=== PATIENT | female | born 2000 | race African-American/Black ===

== ENCOUNTER 2025-05-14 05:24 | Emergency (ER) | payer OTHER ==
[2025-05-14] MEDS ORDERED: ONDANSETRON 4 MG (ODT) TAB ONE (05:45)
[2025-05-14] MEDS ORDERED: ACETAMINOPHEN 500 MG TAB ONE (05:45)
[2025-05-14] MEDS ORDERED: IBUPROFEN 400 MG TAB ONE (05:45)
[2025-05-14] MEDS ORDERED: DIPHENOX/ATROP SULF 1 TAB PO ONE (06:05)
[2025-05-14 06:09] LABS: Influenza A Ag Negative; Influenza B Ag Negative; SARS-CoV-2 Antigen Rapid Res Negative (Negative)
--- NOTE | 2025-05-14 06:30 | EDPHYS ---
Physician Documentation [facility] Name: Natalia Slade Age: 25 yrs Sex: Female : 2000 Arrival Date: 05/14/2025 Time: 05:24 Bed 7 Private MD: ED Physician Leonid Schaefer HPI: 05/14 05:31 This 25 yrs old Black Female presents to ER via Unassigned with complaints of Flu sp4 Symptoms. 22:04 25-year-old female presents with 3 days of worsening sore throat fevers chills feeling sp4 unwell. 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 - Infectious Disease History:: Denies. - Social history:: Smoking status: Patient denies any tobacco usage or history of. - Family history:: not pertinent. ROS: 22:04 Constitutional: positive for fever chills and sore throat. sp4 22:04 All other systems are negative, Exam: 22:04 Constitutional: This is a well developed, well nourished patient who is awake, alert, sp4 and in no acute distress. Head/Face: Normocephalic, atraumatic. Eyes: Pupils equal round and reactive to light, extra-ocular motions intact. Lids and lashes normal. Conjunctiva and sclera are not injected. Cornea within normal limits. Periorbital areas with no swelling, redness, or edema. ENT: Nares patent. No nasal discharge, no septal abnormalities noted. Tympanic membranes are normal and external auditory canals are clear. Oropharynx with no redness, swelling, or masses, exudates, or evidence of obstruction, uvula midline. Mucous membranes moist. Neck: Trachea midline, no thyromegaly or masses palpated, and no cervical lymphadenopathy. Supple, full range of motion without nuchal rigidity, or vertebral point tenderness. Chest/axilla: Normal chest wall appearance and motion. Nontender with no deformity. No lesions are appreciated. Cardiovascular: Regular rate and rhythm with a normal S1 and S2. No gallops, murmurs, or rubs. No pulse deficits. Respiratory: Lungs have equal breath sounds bilaterally, clear to auscultation and percussion. No rales, rhonchi or wheezes noted. No increased work of breathing, no retractions or nasal flaring. Abdomen/GI: Soft, with normal bowel sounds. No distension or tympany. No guarding or rebound. No evidence of tenderness throughout. Back: No spinal tenderness. No costovertebral tenderness. Skin: Warm, dry with normal turgor. Normal color with no rashes, no lesions, and no evidence of cellulitis. MS/ Extremity: Pulses equal, no cyanosis. Neurovascular intact. Full, normal range of motion. Neuro: Awake and alert, GCS 15, oriented to person, place, time, and situation. Cranial nerves II-XII grossly intact. Motor strength 5/5 in all extremities. Sensory grossly intact. Psych: Awake, alert, with orientation to person, place and time. Behavior, mood, and affect are within normal limits Vital Signs: 05:27 BP 144 / 103; Pulse 95; Resp 18 S; Temp 98.7; Pulse Ox 100% on R/A; Weight 115.21 kg; ha1 Height 5 ft. 5 in. ; 06:37 BP 148 / 104; Pulse 91; Resp 18; Pulse Ox 100% ; cp4 05:27 Body Mass Index 42.27 (115.21 kg, 165.1 cm) ha1 [place] Coma Score: 22:04 Eye Response: spontaneous(4). Verbal Response: oriented(5). Motor Response: obeys sp4 commands(6). Total: 15. MDM: 06:30 Medical Screening Exam initiated sp4 22:05 Differential Diagnosis altered mental status, sepsis, flu. Data reviewed: vital signs, sp4 nurses notes, lab test result(s), Flu: negative. Consideration of Admission/Observation Escalation of care including admission/observation considered. ED course: Stable for discharge home with symptomatic medications.. 05/14 05:30 Order name: COVID-19 Ag + Flu A+B Ag; Complete Time: 06:23 cp4 05/14 05:30 Order name: Test, Urine; Complete Time: 06:23 cp4 05/14 05:35 Order name: Group A Streptococcus Rapid; Complete Time: 06:23 cp4 05/14 05:58 Order name: Throat Culture EDMS Administered Medications: 05:51 Drug: Acetaminophen PO 1000 mg PO once Route: PO; ja5 06:09 Follow up: Response: No adverse reaction cp4 05:51 Drug: Ibuprofen PO 800 mg PO once Route: PO; ja5 06:09 Follow up: Response: No adverse reaction cp4 05:51 Drug: Ondansetron PO 8 mg PO once Route: PO; ja5 06:08 Follow up: Response: No adverse reaction; Nausea is decreased cp4 06:09 Drug: Diphenoxylate-Atropine PO 2 tabs PO once Route: PO; cp4 06:39 Follow up: Response: No adverse reaction cp4 Disposition Summary: 05/14/25 06:30 Discharge Ordered Notes: Location: Home sp4 Problem: new sp4 Symptoms: have improved sp4 Condition: Stable sp4 Diagnosis - Acute systemic viral illness, elevated blood pressure reading sp4 Followup: sp4 - With: Private Physician - When: 7 - 10 days - Reason: Recheck today's complaints Discharge Instructions: - Discharge Summary Sheet sp4 - Viral Illness, Adult sp4 Forms: - Work release form sp4 - Patient Portal Instructions sp4 Prescriptions: - Ibuprofen 800 mg Oral tablet - take 1 tablet ORAL route every 8 hours As needed PRN fever; 30 tablet; Refills: sp4 0, Product Selection Permitted - Lomotil 2.5-0.025 mg Oral tablet - take 1 tablet ORAL route every 6 hours As needed PRN nausea; 30 tablet; sp4 Refills: 0, Product Selection Permitted - ondansetron 8 mg Oral Tablet,disintegrating - take 1 tablet ORAL route every 8 hours PRN nausea; 30 tablet; Refills: 0, sp4 Product Selection Permitted Signatures: Dispatcher [employer] EDYue Man RN RN ha1 Leonid Schaefer MD MD sp4 Harleen Bhaita 4 Hiral Villar 5 Corrections: (The following items were deleted from the chart) 05:31 05:31 COVID-19 Ag + Flu A+B Ag+I.LAB.BRZ ordered. EDMS EDMS 05:31 05:31 Test, Urine+UC.LAB.BRZ ordered. EDMS EDMS
--- NOTE | 2025-05-14 06:30 | ER ---
Nurse's Notes [facility] Name: Natalia Slade Age: 25 yrs Sex: Female : 2000 Arrival Date: 05/14/2025 Time: 05:24 Bed 7 Private MD: Diagnosis: Acute systemic viral illness, elevated blood pressure reading Presentation: 05/14 05:27 Chief complaint: Patient states: BILATERAL EAR ACHE, SORE THROAT, AND BODY ACHES. ha1 05:27 Coronavirus screen: Client denies travel out of the [place] in the last 14 days. Ebola ha1 Screen: No symptoms or risks identified at this time. Initial Sepsis Screen: Does the patient meet any 2 criteria? No. Patient's initial sepsis screen is negative. Does the patient have a suspected source of infection? No. Patient's initial sepsis screen is negative. Risk Assessment: Do you want to hurt yourself or someone else? Patient reports no desire to harm self or others. Onset of symptoms was May 14, 2025. 05:27 Method Of Arrival: Ambulatory ha1 05:27 Acuity: JESSICA 4 ha1 Triage Assessment: 05:39 General: Appears uncomfortable, Behavior is calm, cooperative. Pain: Complains of pain ha1 in BILATERAL EAR ACHE AND SORE THROAT. Neuro: Level of Consciousness is awake, alert, obeys commands, Oriented to person, place, time, situation. Cardiovascular: Capillary refill < 3 seconds Patient's skin is warm and dry. Respiratory: Airway is patent Respiratory effort is even, unlabored, Respiratory pattern is regular, symmetrical. GI: No signs and/or symptoms were reported involving the gastrointestinal system. Abdomen is round non-distended. Derm: Skin is normal. 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 - Infectious Disease History:: Denies. - Social history:: Smoking status: Patient denies any tobacco usage or history of. - Family history:: not pertinent. Screenin:47 [facility] ED Fall Risk Assessment (Adult) History of falling in the last 3 months, cp4 including since admission No falls in past 3 months (0 pts) Confusion or Disorientation No (0 pts) Intoxicated or Sedated No (0 pts) Impaired Gait No (0 pts) Mobility Assist Device Used No (0 pt) Altered Elimination No (0 pt) Score/Fall Risk Level 0 - 2 = Low Risk Oriented to surroundings, Maintained a safe environment, Assessed \T\ reinforced patient's understanding of fall precautions, Hourly rounding (assess needs \T\ fall precautionary measures) done. Abuse screen: Denies threats or abuse. Denies injuries from another. Nutritional screening: No deficits noted. Tuberculosis screening: No symptoms or risk factors identified. Never had TB. Assessment: 05:47 General: Appears in no apparent distress. comfortable, Behavior is calm, cooperative, cp4 appropriate for age. Pain: Complains of pain in right ear and left ear Pain does not radiate. Pain currently is 8 out of 10 on a pain scale. Neuro: Level of Consciousness is awake, alert, obeys commands, Oriented to person, place, time, situation. Cardiovascular: Patient's skin is warm and dry. Respiratory: Airway is patent Respiratory effort is even, unlabored. GI: No signs and/or symptoms were reported involving the gastrointestinal system. : No signs and/or symptoms were reported regarding the genitourinary system. EENT: Reports difficulty swallowing. Derm: No signs and/or symptoms reported regarding the dermatologic system. Musculoskeletal: No signs and/or symptoms reported regarding the musculoskeletal system. Vital Signs: 05:27 BP 144 / 103; Pulse 95; Resp 18 S; Temp 98.7; Pulse Ox 100% on R/A; Weight 115.21 kg; ha1 Height 5 ft. 5 in. ; 06:37 BP 148 / 104; Pulse 91; Resp 18; Pulse Ox 100% ; cp4 05:27 Body Mass Index 42.27 (115.21 kg, 165.1 cm) ha1 [place] Coma Score: 22:04 Eye Response: spontaneous(4). Verbal Response: oriented(5). Motor Response: obeys sp4 commands(6). Total: 15. ED Course: 05:26 Patient arrived in ED. im 05:30 Leonid Schaefer MD is Attending Physician. sp4 05:39 Triage completed. ha1 05:47 Bed in low position. Call light in reach. Side rails up X 1. cp4 05:47 No provider procedures requiring assistance completed. Patient did not have IV access cp4 during this emergency room visit. 05:52 Test, Urine Sent. ja5 06:38 Provided Education on: viral illlness. cp4 06:39 Arm band placed on right wrist. Patient placed in waiting room. cp4 Administered Medications: 05:51 Drug: Acetaminophen PO 1000 mg PO once Route: PO; ja5 06:09 Follow up: Response: No adverse reaction cp4 05:51 Drug: Ibuprofen PO 800 mg PO once Route: PO; ja5 06:09 Follow up: Response: No adverse reaction cp4 05:51 Drug: Ondansetron PO 8 mg PO once Route: PO; ja5 06:08 Follow up: Response: No adverse reaction; Nausea is decreased cp4 06:09 Drug: Diphenoxylate-Atropine PO 2 tabs PO once Route: PO; cp4 06:39 Follow up: Response: No adverse reaction cp4 Medication: 05:47 VIS not applicable for this client. cp4 Outcome: 06:30 Discharge ordered by . sp4 06:38 Discharged to home ambulatory, cp4 06:38 Condition: stable 06:38 Discharge instructions given to patient, Instructed on discharge instructions, follow up and referral plans. medication usage, Demonstrated understanding of instructions, follow-up care, medications, Prescriptions given X 3, 06:39 Patient left the ED. cp4 Signatures: Yue Conner RN RN Leonid Osullivan MD MD sp4 Lakisha Jasmine Christina cp4 Hiral Villar
[2025-05-14 06:43] VITALS: TEMP 98.7; O2SAT 100
[2025-05-14 06:44] VITALS: BP 148/104
== END 2025-05-14 06:39 | disposition home or self-care (01) ==
LOC: ER 05:24
DX: B34.9 Viral infection, unspecified (principal); I10 Essential (primary) hypertension; Z11.52 Encounter for screening for COVID-19
CPT/HCPCS: 87070; 36415; 81025; 99283; 87428; Q0162